=== PATIENT | female | born 1940 ===

== ENCOUNTER 2017-12-28 07:21 | Day surgery (SDC) | payer MEDICARE ==
[2017-12-28] MEDS ORDERED: Lactated Ringer's 500 ML IV ONE (07:59)
[2017-12-28] MEDS ORDERED: Propofol 10 mg/ml Inj (20 ML) ONE (08:57)
[2017-12-28] MEDS ORDERED: Midazolam 2 MG/2 ML VIAL ONE (08:57)
[2017-12-28 09:36] VITALS: BP 104/46; PULSE 67; RESP 20; TEMP 97; O2SAT 100
== END 2017-12-28 09:52 | disposition home or self-care (01) ==
LOC: H.ENDO 07:21 → EDBD 07:21 → H.ENDO 09:54
PROVIDERS: ATTEND Internal Medicine Gastroenterology
DX: Z12.11 Encounter for screening for malignant neoplasm of colon (principal); E11.9 Type 2 diabetes mellitus without complications; E78.5 Hyperlipidemia, unspecified; I10 Essential (primary) hypertension; K64.8 Other hemorrhoids; D12.5 Benign neoplasm of sigmoid colon; D12.2 Benign neoplasm of ascending colon; K57.30 Diverticulosis of large intestine without perforation or abscess without bleeding
CPT/HCPCS: 45380; 82948; 88305; J2250; J2704; J7120